=== PATIENT | female | born 1955 | race Caucasian/White ===

== ENCOUNTER 2021-06-22 10:09 | Outpatient (RCR) | payer MEDICARE, OTHER | END 2021-07-01 | disposition home or self-care (01) | LOC: ONC 10:09 | PROVIDERS: ATTEND Radiology Radiation Oncology | DX: C50.412 Malignant neoplasm of upper-outer quadrant of left female breast (principal); C54.1 Malignant neoplasm of endometrium | CPT/HCPCS: 99204 ==

== ENCOUNTER → 2021-07-27 | Outpatient (CLI) | payer MEDICARE, OTHER ==
[~2021-07-27] MED LIST: HEParin (CENTRAL IV FLUSH) 500 UNIT/5 ML SYR IV ONE; HOLD METFORMIN - RECEIVED CONTRAST 20 ML VIAL IV SCH; IOHEXOL 300 MG/ML 50 ML (OMNIPAQUE 300) VIAL IV ONE
--- NOTE | 2021-07-27 15:54 | Diagnostic Imaging Report ---
INDICATION: Right Port-A-Cath placement. FINDINGS: Right Port-A-Cath present, the tip is at the cavoatrial junction. Right lung is well aerated and clear. No pneumothorax or pleural effusion. IMPRESSION: Satisfactory-appearing Port-A-Cath on the right. Dictated by: Dictated on workstation # [id number]
== END ==
LOC: RAD 13:00
DX: Z45.2 Encounter for adjustment and management of vascular access device (principal)
CPT/HCPCS: 36598

== ENCOUNTER → 2021-08-02 | Outpatient (CLI) | payer MEDICARE, OTHER ==
--- NOTE | 2021-08-02 13:32 | Diagnostic Imaging Report ---
TECHNIQUE: Live grayscale and color Doppler ultrasound of the right upper extremity venous system is performed. REASON FOR EXAM: Right upper extremity swelling. History of a right-sided port. COMPARISON: None. FINDINGS: Duplex Doppler, pickett-scale and color-flow imaging of the right upper extremity veins. A nonocclusive deep vein thrombus is visualized within the right jugular vein and proximal portion of the right subclavian vein. These veins demonstrate noncompressibility. The right axillary and brachial veins are patent without evidence of deep vein thrombus. The radial and ulnar veins appear patent as well. The superficial veins (basilic and cephalic veins) are patent. IMPRESSION: 1. Nonocclusive deep vein thrombus within the right jugular vein and proximal portion of the right subclavian vein. Preliminary result was given to Dr. Myrick's nurse immediately following the exam by the esthetician and manager medical spa. Dictated by: Dictated on workstation # [id number]
--- NOTE | 2021-08-02 13:56 | Diagnostic Imaging Report ---
TECHNIQUE: Live grayscale and color Doppler ultrasound was performed of the right upper extremity arterial system. REASON FOR EXAM: Right arm swelling. COMPARISON: None. FINDINGS: Normal triphasic waveforms are seen in the right subclavian, axillary, brachial, radial, and ulnar arteries. Peak systolic velocities are within normal limits. No evidence of focal stenosis. No significant atherosclerotic plaque burden is seen in the right upper extremity arterial system. IMPRESSION: 1. Normal triphasic waveforms throughout the right upper extremity arterial system. No elevated flow velocities or focal stenosis. Dictated by: Dictated on workstation # [id number]
== END ==
LOC: RAD 11:36
PROVIDERS: ATTEND Internal Medicine Hematology & Oncology
DX: I82.401 Acute embolism and thrombosis of unspecified deep veins of right lower extremity (principal); I73.89 Other specified peripheral vascular diseases; M70.88 Other soft tissue disorders related to use, overuse and pressure other site; C50.412 Malignant neoplasm of upper-outer quadrant of left female breast; C54.1 Malignant neoplasm of endometrium; Z95.9 Presence of cardiac and vascular implant and graft, unspecified
CPT/HCPCS: 93931

== ENCOUNTER → 2022-02-01 | Outpatient (CLI) | payer MEDICARE, OTHER | LOC: CARD 11:25 | PROVIDERS: ATTEND Internal Medicine Hematology & Oncology | DX: Z51.11 Encounter for antineoplastic chemotherapy (principal); Z51.12 Encounter for antineoplastic immunotherapy; C54.1 Malignant neoplasm of endometrium | CPT/HCPCS: 93306 ==